=== PATIENT | female | born 1930 | race African-American/Black ===

== ENCOUNTER 2021-04-12 09:12 | Emergency (ER) | payer MEDICARE ==
[2021-04-12 11:05] LABS: BASOPHIL 0.1 % (0-2); EOSINOPHIL 0 % (0-7); HCT 31.1 % (37.0-47.0); HGB 10.2 g/dl (12.5-16.0); LYMPHOCYTE 3.8 % (15-48); MCH 29.8 pg (25.0-31.0); MCHC 32.8 g/dL (32.0-36.0); MCV 90.9 fL (78.0-100.0); MONOCYTE 4.1 % (0-12); MPV 9.9 fL (6.0-9.5); NEUTROPHIL 91.6 % (41-80); NRBC 0; PLT 543 K/uL (150-400); RBC 3.42 M/uL (4.20-5.40); RDW 12.9 % (11.5-14.0); WBC 19.8 K/uL (4.0-10.5)
[2021-04-12 11:17] LABS: INR 1.18 (0.9-1.2); PROTHROMBIN TIME 14.4 SECONDS (11.8-13.4); PTT 39.4 SECONDS (24.4-34.7)
[2021-04-12 11:43] LABS: ALBUMIN 1.5 g/dL (3.4-5.0); ALKALINE PHOSHATASE 90 U/L (46-116); ALT 29 U/L (14-59); AST 59 U/L (15-37); BILIRUBIN - TOTAL 0.7 mg/dL (0.2-1.0); BUN 41 mg/dL (7-18); BUN/CREAT RATIO (CALC) 16.1 RATIO; CHLORIDE 97 mmol/L (98-107); CO2 (BICARBONATE) 24 mmol/L (21-32); CPK 603 U/L (26-192); CREATININE 2.55 mg/dL (0.51-0.95); GLOBULIN (CALCULATION) 4.5 g/dL; GLUCOSE 98 mg/dL (74-106); LDH 347 U/L (81-234); LIPASE 26 U/L (73-393); MAGNESIUM 2.5 mg/dL (1.8-2.4); POTASSIUM 4.4 mmol/L (3.5-5.1)
[2021-04-12 11:46] LABS: C-REACTIVE PROTEIN > 18.00 mg/dL (<=0.90)
[2021-04-12 11:58] LABS: LACTIC ACID 0.9 mmol/L (0.4-1.9)
[2021-04-12 12:25] LABS: BILIRUBIN NEGATIVE (NEGATIVE); BLOOD 2+ Ery/uL (NEGATIVE); CLARITY HAZY (CLEAR); COLOR YELLOW (YELLOW); GLUCOSE (U) NORMAL (NORMAL); LEUKOCYTES TRACE Leu/uL (NEGATIVE); NITRITE NEGATIVE (NEGATIVE); PROTEIN 2+ mg/dL (NEGATIVE); SPECIFIC GRAVITY 1.025 (1.001-1.030)
[2021-04-12 13:16] LABS: AMORPHOUS URATES CRYSTALS MODERATE; BACTERIA 1+; URINARY WBC 20-50
== END 2021-04-12 22:30 | disposition other institution (70) ==
LOC: FER 09:12
PROVIDERS: Emergency Medicine
DX: A41.9 Sepsis, unspecified organism (principal); R65.20 Severe sepsis without septic shock; J90 Pleural effusion, not elsewhere classified; G92.9 Unspecified toxic encephalopathy; J18.9 Pneumonia, unspecified organism; N39.0 Urinary tract infection, site not specified; I10 Essential (primary) hypertension; Z79.899 Other long term (current) drug therapy; Z20.822 Contact with and (suspected) exposure to COVID-19
CPT/HCPCS: 36415; 36600; 70450; 71250; 80053; 81001; 82550; 82728; 82803; 83605; 83615; 83690; 83735; 83880; 84145; 84443; 84484; 85025; 85610; 85730; 86140; 87040; 87088; 93005; 96365; 96366; 96367; J2543; J3370; J7050; U0002